=== PATIENT | female | born 1985 | race Caucasian/White ===

== ENCOUNTER 2016-12-16 16:31 | Inpatient (IN) | payer MEDICAID ==
[~2016-12-16] VITALS: Ht 157.5 cm; Wt 55.9 kg
[~2016-12-16 16:31] MED LIST: IBUP800T23 PO; IMIT25TA PO; ZOFR4TAB PO
[2016-12-16 16:37] VITALS: BP 121/66; PULSE 124; RESP 23; TEMP 98.8; O2SAT 96
[2016-12-16] MEDS: SODIUM CHLOR 0.9% 1000 ML INJ 1,000 ML IV SCH (16:59)
[2016-12-16] MEDS ORDERED: ONDANSETRON HCL 4 MG/2 ML VIAL IV PUSH ONE (17:00)
[2016-12-16] MEDS ORDERED: HYDROmorphone HCL PF 1 MG/ML VIAL IV PUSH ONE ×3 (17:00→19:30)
[2016-12-16 17:27] LABS: AUTOMATED NEUTROPHIL # 5.7 TH/MM3 (1.8-7.7); BASOPHIL % 0.4 % (0.0-2.0); EOSINOPHIL % 0.1 % (0.0-4.0); HEMATOCRIT 30.1 % (35.0-46.0); HEMO FLAGS DIFF FINAL; LYMPHOCYTE # 0.9 TH/MM3 (1.0-4.8); MEAN CELL VOLUME 91.9 FL (80.0-100.0); MEAN CORPUSCULAR HEMOGLOBIN 30.4 PG (27.0-34.0); MEAN CORPUSCULAR HGB CONC 33.1 % (32.0-36.0); MONO % 7.3 % (0.0-8.0); NEUT % 79.2 % (16.0-70.0); PLATELET COUNT 172 TH/MM3 (150-450); RED BLOOD COUNT 3.28 MIL/MM3 (4.00-5.30); RED CELL DISTRIBUTION WIDTH 14.8 % (11.6-17.2); WHITE BLOOD COUNT 7.1 TH/MM3 (4.0-11.0)
--- NOTE | 2016-12-16 17:51 | RADRPT ---
EXAM DATE/TIME: 12/16/2016 17:23 [place] COMPARISON: No previous studies available for comparison. INDICATIONS : Fall. MEDICAL HISTORY : None. SURGICAL HISTORY : None. ENCOUNTER: Initial ACUITY: 1 day PAIN SCORE: 10/10 LOCATION: Left hip FINDINGS: There is a subcapital fracture of the left femur. There is mild inferomedial displacement of the femo ral head with respect to the neck and mild medial angulation deformity. Femoral head is intact. No antoine bluxation. CONCLUSION: Mildly displaced and mildly angulated subcapital fracture of the left femoral neck. Darek Coronado MD on December 16, 2016 at 17:49 Board Certified Radiologist. This report was verified electronically.
[2016-12-16 17:57] LABS: POTASSIUM 3.9 MEQ/L (3.5-5.1)
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
[2016-12-16 19:00] VITALS: O2SAT 99
[2016-12-16] MEDS ORDERED: ACETAMINOPHEN 325 MG TAB PO PRN (20:00)
[2016-12-16] MEDS ORDERED: BISACODYL 10 MG SUPP RECTAL PRN (20:00)
[2016-12-16] MEDS ORDERED: HYDROmorphone HCL PF 1 MG/ML VIAL IV PRN (20:00)
[2016-12-16] MEDS ORDERED: SODIUM CHLORIDE 0.9% FLUSH 10 ML FLUSH IV FLUSH PRN (20:00)
[2016-12-16] MEDS ORDERED: ONDANSETRON HCL 4 MG/2 ML VIAL IVP PRN (20:00)
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
[2016-12-16 20:14] LABS: BACTERIA, URINE OCC /hpf; BLOOD, URINE TRACE (NEG); COMMENT (UR) CULTURE INDICATED; CULTURE IF INDICATED CULTURE INDICATED; GLUCOSE,URINE NEG (NEG); KETONE, URINE TRACE mg/dL (NEG); MUCUS URINE FEW /lpf (OCC); SQUAMOUS EPITHELIAL CELL URINE <1 /hpf (0-5); URINE COLOR YELLOW (YELLW/STRAW)
[2016-12-16 20:16] LABS: NITRITE,URINE POS (NEG)
[2016-12-16 20:27] VITALS: BP 135/88
[2016-12-16 20:32] VITALS: BP 113/66; PULSE 82; RESP 18; TEMP 97; O2SAT 97
[2016-12-16] MEDS: HYDROmorphone HCL PF 1 MG/ML VIAL IV PRN (22:42)
[2016-12-17] VITALS (7 sets, daily range): BP systolic 106–126; BP diastolic 64–85; PULSE 58–88; RESP 16–18; TEMP 96.7–98.6; O2SAT 97–100
[2016-12-17] MEDS: SODIUM CHLOR 0.9% 1000 ML INJ 1,000 ML IV SCH ×3 (01:00→05:55)
[2016-12-17] MEDS ORDERED: POVIDONE IODINE 5% (ANTISEPSIS KIT) 4 APPLICATIONS EACH NARE PRN (01:15)
[2016-12-17] MEDS ORDERED: CHLORHEXIDINE GLUCONATE 2 % 1 PACK (2 CLOTHS) TOPICAL PRN (01:15)
[2016-12-17] MEDS ORDERED: SODIUM CHLORID 0.9% 500 ML IV PRN (01:15)
[2016-12-17] MEDS ORDERED: INSULIN HUMAN REGULAR 1,000 UNITS/10 ML VIAL SQ PRN (01:15)
[2016-12-17] MEDS ORDERED: LACTATED RINGER'S 1000 ML IV PRN (01:15)
[2016-12-17] MEDS: HYDROmorphone HCL PF 1 MG/ML VIAL IV PRN ×4 (01:37→20:58)
[2016-12-17] MEDS ORDERED: RESP: ALBUTEROL 2.5 MG/IPRATROPIUM 0.5 MG NEB (PRN) NEB (02:45)
[2016-12-17] MEDS: CIPROFLOXACIN 400 MG PREMIX 200 ML IV SCH ×2 (05:01→18:46)
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
[2016-12-17 07:37] LABS: AUTOMATED NEUTROPHIL # 3.9 TH/MM3 (1.8-7.7); BASOPHIL % 0.5 % (0.0-2.0); EOSINOPHIL # 0.1 TH/MM3 (0-0.4); EOSINOPHIL % 1.1 % (0.0-4.0); HEMATOCRIT 36.6 % (35.0-46.0); HEMO FLAGS DIFF FINAL; LYMPH % 25.8 % (9.0-44.0); LYMPHOCYTE # 1.6 TH/MM3 (1.0-4.8); MEAN CELL VOLUME 90.2 FL (80.0-100.0); MEAN CORPUSCULAR HEMOGLOBIN 29.8 PG (27.0-34.0); MONO % 9.4 % (0.0-8.0); NEUT % 63.2 % (16.0-70.0); PLATELET COUNT 181 TH/MM3 (150-450); RED BLOOD COUNT 4.06 MIL/MM3 (4.00-5.30); WHITE BLOOD COUNT 6.2 TH/MM3 (4.0-11.0)
[2016-12-17 07:47] LABS: APTT (PATIENT) 31.1 SEC (24.3-30.1); PROTHROMBIN TIME - PATIENT 10.7 SEC (9.8-11.6)
[2016-12-17 08:06] LABS: ALKALINE PHOSPHATASE 75 U/L (45-117); ALT (GPT) 21 U/L (10-53); ANION GAP 8 MEQ/L (5-15); AST (GOT) 26 U/L (15-37); BICARBONATE 26.5 MEQ/L (21.0-32.0); BLOOD UREA NITROGEN 9 MG/DL (7-18); CHLORIDE 104 MEQ/L (98-107); GLOMERULAR FILTRATION RATE 115 ML/MIN (>89); POTASSIUM 3.4 MEQ/L (3.5-5.1); SODIUM (NA) 138 MEQ/L (136-145); TOTAL BILIRUBIN ADULT 0.4 MG/DL (0.2-1.0)
[2016-12-17] MEDS ORDERED: VANCOMYCIN HCL 1000 MG VIAL ONE (08:08)
[2016-12-17] MEDS ORDERED: GENTAMICIN SULFATE 80 MG/2 ML VIAL ONE (08:29)
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
[2016-12-17] MEDS ORDERED: BUPIVACAINE/EPINEPHRINE 0.25% 50 ML VIAL ONE (08:47)
[2016-12-17] MEDS ORDERED: SODIUM CHLORIDE 0.9% FLUSH 5 ML FLUSH IVF PRN (09:00)
[2016-12-17] MEDS ORDERED: Post-op Orders (for Pharmacy) MISC XX ONE (09:00)
[2016-12-17] MEDS ORDERED: MORPHINE SULFATE 4 MG/ML INJ IV PUSH PRN (09:00)
[2016-12-17] MEDS ORDERED: ERGOCALCIFEROL (VIT D2) 50,000 UNIT CAP PO ONE (09:00)
[2016-12-17] MEDS ORDERED: SODIUM CHLORIDE 0.9% FLUSH 5 ML FLUSH IVF SCH (09:00)
[2016-12-17] MEDS: SODIUM CHLORIDE 0.9% FLUSH 10 ML FLUSH IV FLUSH SCH ×2 (09:00→20:58)
--- NOTE | 2016-12-17 09:06 | PD.OP ---
cc: Power Aguilera MD Operative Report Date of Surgery: December 17, 2016 Preoperative Diagnosis: Displaced left femoral neck fracture Postoperative Diagnosis: Procedure: Open reduction internal fixation left femoral neck Anesthesia: Gen. Surgeon: Power Aguilera Talent Manager(s): LAWRENCE Alfaro PA-C The surgical procedure was assisted by my physician clinic office assistant. My P.A. presence was necessary throughout this case for the manipulation and positioning of the surgical extremity. My P.A. was assisting me throughout the duration of this procedure. The skill set of a physician clinic office assistant was medically necessary to complete this procedure. During the surgical case the surgical lead was working at the back table and the physician clinic office assistant was directly assisting me. Operation and Findings: Plan of activity: TTWB Patient was seen and evaluated preoperatively. The patient has significant hip pain from displaced left femoral neck fracture. The risk and benefits of surgery were discussed in depth with the patient to include bleeding infection nonunion malunion, avascular necrosis and need for hip replacement painful hardware as well as medical competitions including but not stroke heart attack and . Informed consent was obtained. Operative site was marked. Patient was brought to the operating room and placed on fracture table. IV sedation was administered by anesthesiologist. Timeout procedure was performed. Hip and leg were prepped with alcohol followed by DuraPrep and draped in the usual sterile fashion. IV antibiotics were given prior to incision. Procedure began with evaluation of fracture under fluoroscopy. The fracture had significant displacement. The left Leg was gently manipulated to improve alignment. Gentle traction was applied and the leg was internally rotated. Excellent reduction was achieved. Fluoroscopy was used to confirm reduction. A three cm incision was along the lateral aspect of the proximal femur . Subcutaneous tissue was dissected bluntly. Three guidepins were placed through the lateral cortex of the proximal femur. Guide pins were placed in an inverted triangle position. Guide pins were advanced across the fracture site into the femoral head. Fluoroscopy confirmed appropriate guidepin placement. The screw lengths were measured. A cannulated drill was placed over each of the guide pins. Appropriate length Synthes 7.3 cannulated screws were placed over the guidepins. Good compression was applied across the fracture. Final fluoroscopy revealed well aligned fracture with well-placed hardware. Incision was closed with 3-0 Vicryl and mattie. Sterile dressings were applied. Patient was awakened and transferred to recovery room. Power Aguilera MD December 17, 2016 09:06
[2016-12-17] MEDS ORDERED: DO NOT ADM ANY ANTICOAGULANT DRUGS PRN (09:09)
[2016-12-17] MEDS ORDERED: ACETAMINOPHEN 1000 MG/100 ML VIAL IV ONE (09:18)
[2016-12-17] MEDS ORDERED: MIDAZOLAM HCL 2 MG/2 ML VIAL ONE (09:31)
[2016-12-17] MEDS ORDERED: fentaNYL CITRATE 250 MCG/5 ML AMP ONE (09:31)
[2016-12-17] MEDS ORDERED: *HYDROmorphone PF 1 MG VIAL PERIprocedural Use ONLY ONE (09:34)
[2016-12-17] MEDS ORDERED: NORMOSOL R INJ 1,000 ML IV ONE (10:28)
[2016-12-17] MEDS ORDERED: ONDANSETRON HCL 4 MG/2 ML VIAL IV ONE (10:28)
[2016-12-17] MEDS ORDERED: NEOSTIGMINE 3 MG/3 ML SYR IV ONE (10:28)
[2016-12-17] MEDS ORDERED: PROPOFOL 200 MG/20 ML AMP IV ONE (10:28)
[2016-12-17] MEDS: ACETAMINOPHEN/HYDROcodone 325 MG/10 MG TAB PO PRN ×3 (12:09→22:57)
[2016-12-17] MEDS: CHOLECALCIFEROL (VIT D3) 5000 UNIT CAP PO SCH (12:10)
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
[2016-12-17] MEDS ORDERED: POTASSIUM CHLORIDE 20 MEQ CONTROLLED RELEASE TAB PO ONE (14:15)
--- NOTE | 2016-12-17 15:31 | RADRPT ---
EXAM DATE/TIME: 12/17/2016 08:51 [facility] COMPARISON: HIP LEFT (AP&LAT 2/3VWS) W AP PELVIS, December 16, 2016, 17:23. INDICATIONS : ORIF left hip pinning. MEDICAL HISTORY : None. SURGICAL HISTORY : None. ENCOUNTER: Subsequent ACUITY: 2 days PAIN SCORE: Non-responsive. LOCATION: Left hip. FINDINGS: Multiple views of the left hip were obtained and demonstrate placement of 3 left-sided screws transfi keshawn the subcapital fracture. The fracture fragments are in near-anatomic alignment. There is overlyi ng soft tissue artifact. CONCLUSION: Status post open rigid internal fixation. Erasmo Delatorre MD on December 17, 2016 at 15:28 Board Certified Radiologist. This report was verified electronically.
[2016-12-17] MEDS ORDERED: ALPR.5 PO (17:27)
[2016-12-17] MEDS ORDERED: ENOXAPARIN SODIUM 30 MG/0.3 ML SYRINGE SQ SCH (21:00)
[2016-12-18] MEDS: HYDROmorphone HCL PF 1 MG/ML VIAL IV PRN ×3 (00:17→06:24)
[2016-12-18 04:05] VITALS: BP 113/66; PULSE 68; RESP 16; TEMP 97; O2SAT 98
[2016-12-18] MEDS: CIPROFLOXACIN 400 MG PREMIX 200 ML IV SCH (06:00)
--- NOTE | 2016-12-18 06:43 | PD.ORT.PN ---
Subjective Subjective Remarks POD 1 s/p percutaneous pinning left femoral neck doing well. out of bed with therapy yesterday reports pain Objective Vitals Vital Signs Date Time Temp Pulse Resp B/P Pulse Ox O2 Delivery O2 Flow Rate FiO2 12/18/16 04:05 97.0 68 16 113/66 98 12/17/16 23:45 97.0 70 18 121/79 100 12/17/16 19:50 98.1 71 17 119/73 99 12/17/16 15:56 97.5 65 17 126/85 100 12/17/16 11:40 96.7 58 17 117/69 98 12/17/16 10:05 97.3 95 15 110/68 98 Nasal Cannula 2 12/17/16 10:00 78 15 109/66 98 Nasal Cannula 2 12/17/16 09:45 116 15 89/60 98 Nasal Cannula 2 12/17/16 09:30 116 15 71/46 98 Nasal Cannula 2 12/17/16 09:14 97.3 109 15 92/50 98 Nasal Cannula 2 12/17/16 07:44 98.3 77 17 125/64 97 I/O 12/17/16 12/17/16 12/17/16 12/18/16 12/18/16 12/18/16 07:00 15:00 23:00 07:00 15:00 23:00 Intake Total 0 ml 1700 ml 480 ml 480 ml Output Total 350 ml 650 ml 1200 ml 875 ml Balance -350 ml 1050 ml -720 ml -395 ml Intake Oral 0 ml 400 ml 480 ml 480 ml IV Total 100 ml Other 1200 ml Output Urine Total 350 ml 600 ml 1200 ml 875 ml Estimated Blood Loss 50 ml # Bowel Movements 0 0 0 0 Result Diagram: 12/17/16 0643 12/17/16 0643 Other Results Laboratory Tests Test 12/17/16 06:43 Prothrombin Time 10.7 SEC (9.8-11.6) Prothromb Time International 1.0 RATIO Ratio Imaging Last 24 hours Impressions Hip and Pelvis X-Ray 12/16/16 1648 Signed Impressions: Service Date/Time: Friday, December 16, 2016 17:23 - CONCLUSION: Mildly displaced and mildly angulated subcapital fracture of the left femoral neck. Darek Coronado MD Objective Remarks LLE: dressinsg clean and dry. intact. NVI Assessment & Plan Assessment and Plan 1) Left Femoral Neck Fx s/p Perc Pinning - POD 1 -TTWB -daily dressing changes POD 2 -CM for HHC and DC planning -ortho cleared for DC home when arrangements made -f/u with [facility] or [facility] in 2 weeks -scripts on chart Gabo Oviedo December 18, 2016 06:43
[2016-12-18] MEDS ORDERED: WALKER/ADULT/FO1 MIS (06:44)
--- NOTE | 2016-12-18 06:45 | HHI.FF ---
Face to Face Verification Diagnosis: (1) Fracture of left femur Physical Therapy Gait training Hip: Hip fracture, Protocol: Left Left LE Weight Bearing: Toe Touch WB Nursing Dressing Changes: Daily dressing change, 4x4s, Paper tape, Xeroform I have seen patient Monique Mccauley on 12/18/16. My clinical findings support the need for the requested home health care services because: Ltd mobility - disease progression I certify that my clinical findings support that this patient is homebound because: Post-op weakness Gabo Oviedo December 18, 2016 06:45
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
[2016-12-18] MEDS ORDERED: XARE10TA PO (07:14)
[2016-12-18] MEDS ORDERED: CIPR250T52 PO (07:14)
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
[2016-12-18] MEDS ORDERED: HYDR-3288 PO (07:18)
[2016-12-18 07:39] LABS: HEMATOCRIT 35.3 % (35.0-46.0); REVIEW FLAG FINAL
[2016-12-18 08:00] VITALS: BP 114/67; PULSE 69; RESP 17; TEMP 97; O2SAT 96
[2016-12-18] MEDS: CHOLECALCIFEROL (VIT D3) 5000 UNIT CAP PO SCH (08:27)
[2016-12-18] MEDS: ACETAMINOPHEN/HYDROcodone 325 MG/10 MG TAB PO PRN ×2 (08:28→12:50)
[2016-12-18] MEDS: SODIUM CHLORIDE 0.9% FLUSH 10 ML FLUSH IV FLUSH SCH (08:29)
[2016-12-18 12:00] VITALS: BP 133/78; PULSE 73; RESP 18; TEMP 96.9; O2SAT 97
[2016-12-18 16:00] VITALS: BP 116/70; PULSE 70; RESP 17; TEMP 97; O2SAT 97
== END 2016-12-18 17:46 | disposition home health service (06) | DRG 481 ==
LOC: NEPE 16:31 → EEVIPCON 19:26 → NEDA 19:26 → N06B 20:37
PROVIDERS: ADMIT Internal Medicine; ATTEND Internal Medicine
PROC: 0QS704Z Reposition Left Upper Femur with Internal Fixation Device, Open Approach (ICD-10-PCS; principal; 2016-12-17 08:11)
DX: S72.012A Unspecified intracapsular fracture of left femur, initial encounter for closed fracture (principal); N39.0 Urinary tract infection, site not specified; J96.10 Chronic respiratory failure, unspecified whether with hypoxia or hypercapnia; J44.9 Chronic obstructive pulmonary disease, unspecified; F20.9 Schizophrenia, unspecified; F31.9 Bipolar disorder, unspecified; Y04.2XXA Assault by strike against or bumped into by another person, initial encounter; Y92.89 Other specified places as the place of occurrence of the external cause; F41.9 Anxiety disorder, unspecified; E87.6 Hypokalemia; F17.210 Nicotine dependence, cigarettes, uncomplicated; Z85.42 Personal history of malignant neoplasm of other parts of uterus
CPT/HCPCS: 73502; 76000; 80048; 80053; 81001; 82306; 85014; 85018; 85025; 85610; 85730; 86850; 86900; 86901; 87077; 87086; 87186; 96361; 96374; 96375; 96376; C1713; C1769; J0131; J0744; J1170; J1580; J1650; J2250; J2405; J2710; J3010; J3370; J7030

== ENCOUNTER 2017-06-16 09:56 | Emergency (ER) | payer MEDICAID ==
[~2017-06-16] VITALS: Ht 157.5 cm; Wt 47.5 kg
[~2017-06-16 09:56] MED LIST changes: +ALPR.5 PO; +CIPR250T52 PO; +HYDR-3288 PO; -IBUP800T23 PO; +WALKER/ADULT/FO1 MIS; +XARE10TA PO
[2017-06-16 10:03] VITALS: BP 148/87; PULSE 80; RESP 20; TEMP 97.9; O2SAT 99
--- NOTE | 2017-06-16 11:10 | PD ---
HPI Chief Complaint: Headache Time Seen by Provider: 11:02 Travel History International Travel<30 days: No Contact w/Intl Traveler<30days: No Traveled to known affect area: No History of Present Illness HPI This is a 31-year-old female who presents to the emergency department with a headache that started last evening, constant, severe affecting her right forehead radiating into her right neck associated with white spots in her vision. She's vomited several times. She has a long history of migraines. She takes Imitrex at home for her headaches but that's not helping. This feels the same as her prior headaches. She denies any difficulty walking or talking. PFSH Past Medical History Arthritis: No Asthma: No Autoimmune Disease: No Blood Disorders: No Bipolar Disorder: Yes Anxiety: Yes Depression: Yes Heart Rhythm Problems: No Cancer: Yes (OVARIAN) Cardiovascular Problems: No High Cholesterol: No Chemotherapy: No Chest Pain: Yes Congestive Heart Failure: No COPD: Yes Cerebrovascular Accident: No Diminished Hearing: No Endocrine: No Gastrointestinal Disorders: Yes GERD: No Genitourinary: No Hepatitis: No Hiatal Hernia: Yes Hypertension: No Immune Disorder: No Implanted Vascular Access Dvce: No Kidney Stones: No Musculoskeletal: Yes Neurologic: Yes Psychiatric: Yes ( states bipolar and schizophrenic.) Reproductive: Yes (FIBROIDS) Respiratory: Yes (COPD) Migraines: Yes (HER ENTIRE LIFE) Radiation Therapy: Yes (For uterine Ca, 2001) Renal Failure: No Schizophrenia: Yes Seizures: Yes (ONCE, 2010) Ulcer: No Menopausal: Yes : 4 Para: 3 Miscarriage: 1 Dilation and Curettage (D&C): Yes (x2) Past Surgical History Abdominal Surgery: No Appendectomy: No Cardiac Surgery: No Cholecystectomy: Yes Ear Surgery: Yes (tubes) Endocrine Surgery: No Eye Surgery: No Genitourinary Surgery: No Gynecologic Surgery: Yes ( HYSTERECTOMY 2010) Hysterectomy: Yes Oral Surgery: No Thoracic Surgery: No Other Surgery: Yes (mouth) Social History Alcohol Use: No Tobacco Use: Yes (1 PPD) Substance Use: No (HX HEROIN USE) Allergies-Medications (Allergen,Severity, Reaction): Coded Allergies: amoxicillin (Unverified Allergy, Severe, RASH, 06/16/17) codeine (Unverified Allergy, Severe, UNKNOWN, 06/16/17) morphine (Unverified Allergy, Severe, HIVES ITCHING, 06/16/17) penicillin G (Unverified Allergy, Severe, Swelling, 06/16/17) Reported Meds & Prescriptions Reported Meds & Active Scripts Active Imitrex (Sumatriptan Succinate) 25 Mg Tab 25 Mg PO ONCE PRN If a satisfactory response has not been obtained at 2 hours, a second dose may be administered Review of Systems Except as stated in HPI: all other systems reviewed are Neg Physical Exam Narrative GENERAL:Well appearing, no acute distress SKIN: Focused skin assessment warm and dry. HEAD: Atraumatic. Normocephalic. EYES: Pupils equal and round. No injection or drainage. ENT: Moist mucous membranes NECK: Trachea midline. CARDIOVASCULAR: Regular rate and rhythm. No murmur appreciated. RESPIRATORY: Clear to auscultation. Breath sounds equal bilaterally. GASTROINTESTINAL: Abdomen soft, non-tender, nondistended. MUSCULOSKELETAL: No obvious deformities. NEUROLOGICAL: Awake and alert. No obvious cranial nerve deficits. No dysarthria or aphasia. No upper or lower extremity drift. No upper extremity ataxia. Visual ramirez intact. PSYCHIATRIC: Appropriate mood and affect; insight and judgment normal. Data Data Last Documented VS Vital Signs Date Time Temp Pulse Resp B/P (MAP) Pulse Ox O2 Delivery O2 Flow Rate FiO2 06/16/17 10:03 97.9 80 20 148/87 (107) 99 Room Air MDM Medical Decision Making Medical Screen Exam Complete: Yes Emergency Medical Condition: Yes Differential Diagnosis Migraine headache, tension headache, cluster headache, subarachnoid hemorrhage, meningitis Narrative Course This is a 31-year-old female who presents to the emergency department with a headache that's typical of her migraines. She has a normal neurologic exam. I don't think any neuro imaging is warranted as this headache is typical of her prior headaches. Patient will be given IV Compazine, Toradol and IV fluids. If she improves she can be discharged with a naproxen prescription. Brook Sandoval MD Jun 16, 2017 11:10
[2017-06-16] MEDS ORDERED: SODIUM CHLOR 0.9% 1000 ML INJ 1,000 ML IV ONE ×2 (11:22→13:00)
--- NOTE | 2017-06-16 11:26 | PD ---
Physical Exam Date Seen by Provider: Jun 16, 2017 Time Seen by Provider: 11:24 Narrative Patient was evaluated by Dr. Sandoval. This is a 31-year-old female presents to the emergency department for evaluation of a headache that started last night. She states she has vomited 4 times. She has a long history of migraines. Patient reports photophobia and phonophobia. Data Data Last Documented VS Vital Signs Date Time Temp Pulse Resp B/P (MAP) Pulse Ox O2 Delivery O2 Flow Rate FiO2 06/16/17 11:46 16 99 Room Air 06/16/17 10:03 97.9 80 Orders Orders Ecg Monitoring (06/16/17 11:22) Iv Access Insert/Monitor (06/16/17 11:22) Oximetry (06/16/17 11:22) Sodium Chloride 0.9% Flush (Ns Flush) (06/16/17 11:30) Ketorolac Inj (Toradol Inj) (06/16/17 11:30) Prochlorperazine Inj (Compazine Inj) (06/16/17 11:30) Diphenhydramine Inj (Benadryl Inj) (06/16/17 11:30) Sodium Chlor 0.9% 1000 Ml Inj (Ns 1000 M (06/16/17 11:22) Magnesium Sulfate 1 Gm Premix (Magnesium (06/16/17 13:00) Dexamethasone Inj (Decadron Inj) (06/16/17 13:00) Sodium Chlor 0.9% 1000 Ml Inj (Ns 1000 M (06/16/17 13:00) Ct Brain W/O Iv Contrast(Rout) (06/16/17 ) [facility] Medical Record Reviewed: Yes Supervised Visit with ANGIE: No Interpretation(s) CT brain - normal examination Differential Diagnosis Migraine headache versus tension type headache versus subarachnoid hemorrhage Narrative Course 31-year-old female presents to the emergency department for evaluation of a headache. Dr. Foote examined patient patient has a normal neurologic exam. IV access established. Patient is given Benadryl 25 mg IV, Compazine 10 mg IV, Toradol 30 mg IV. Upon reassessment, patient states she's had no improvement with her headache. I spoke to Dr. Sandoval. Patient is given magnesium 2 g IV, Decadron 8 mg IV, a second liter of IV fluids. CT of the brain is ordered and is normal. Upon reassessment, the patient states she has had some improvement in her headache. She is to follow-up with her primary care physician. She will be discharged with a prescription for naproxen. The patient was discharged in stable condition with instructions, including return instructions and follow up instructions. Diagnosis Primary Impression: Migraine headache Qualified Codes: G43.909 - Migraine, unspecified, not intractable, without status migrainosus Referrals: Primary Care Physician call for appointment Patient Instructions: General Instructions, Migraine Headache (ED) Additional Instruction: Take naproxen as directed as needed for pain. Follow-up with your primary care physician. Return to the emergency department for any acute worsening of symptoms. Med/Other Pt SpecificInfo: Prescription(s) given Scripts Naproxen (Naproxen) 500 Mg Tab 500 MG PO BID Y for PAIN SCALE 1 TO 10, #20 TAB 0 Refills Prov: Ronda Oviedo 06/16/17 Disposition: 01 DISCHARGE HOME Condition: Stable Ronda Oviedo Jun 16, 2017 11:25
[2017-06-16] MEDS ORDERED: diphenhydrAMINE HCL 50 MG/ML VIAL IVP ONE (11:30)
[2017-06-16] MEDS ORDERED: SODIUM CHLORIDE 0.9% FLUSH 10 ML FLUSH IVF PRN (11:30)
[2017-06-16] MEDS ORDERED: KETOROLAC TROMETHAMINE 30 MG/ML (IVP) VIAL IVP ONE (11:30)
[2017-06-16] MEDS ORDERED: PROCHLORPERAZINE INJ 10 MG/2 ML VIAL IVP ONE (11:30)
[2017-06-16 11:46] VITALS: RESP 16; O2SAT 99
[2017-06-16] MEDS: MAGNESIUM SULFATE 1 GM PREMIX 100 ML IV SCH ×2 (12:59→13:48)
[2017-06-16] MEDS ORDERED: DEXAMETHASONE SOD PHOS 4 MG/ML VIAL IV PUSH ONE (13:00)
--- NOTE | 2017-06-16 15:18 | RADRPT ---
EXAM DATE/TIME: 06/16/2017 14:43 [facility] COMPARISON: CT BRAIN W/O CONTRAST, June 11, 2016, 15:33. INDICATIONS : Cephalgia. RADIATION DOSE: 56.35 CTDIvol (mGy) MEDICAL HISTORY : Seizures. SURGICAL HISTORY : Hysterectomy. ENCOUNTER: Initial ACUITY: 1 day PAIN SCALE: 4/10 LOCATION: cranial TECHNIQUE: Multiple contiguous axial images were obtained of the head. Using automated exposure control and adj ustment of the mA and/or kV according to patient size, radiation dose was kept as low as reasonably a chievable to obtain optimal diagnostic quality images. DICOM format image data is available electro nically for review and comparison. FINDINGS: CEREBRUM: The ventricles are normal for age. No evidence of midline shift, mass lesion, hemorrhage or acute in farction. No extra-axial fluid collections are seen. POSTERIOR FOSSA: The cerebellum and brainstem are intact. The 4th ventricle is midline. The cerebellopontine angle i s unremarkable. EXTRACRANIAL: The visualized portion of the orbits is intact. SKULL: The calvaria is intact. No evidence of skull fracture. CONCLUSION: Normal examination. Aristides Briggs MD on June 16, 2017 at 15:16 Board Certified Radiologist. This report was verified electronically.
[2017-06-16] MEDS ORDERED: NAPR500T2 PO (15:26)
== END 2017-06-16 15:58 | disposition home or self-care (01) ==
LOC: NEPD 09:56
DX: G43.909 Migraine, unspecified, not intractable, without status migrainosus (principal); R11.10 Vomiting, unspecified; F31.9 Bipolar disorder, unspecified; F41.9 Anxiety disorder, unspecified; J44.9 Chronic obstructive pulmonary disease, unspecified; F20.9 Schizophrenia, unspecified; R56.9 Unspecified convulsions; F17.200 Nicotine dependence, unspecified, uncomplicated; Z79.899 Other long term (current) drug therapy
CPT/HCPCS: 70450; 96361; 96365; 96375; 99285; J0780; J1100; J1200; J1885; J3475; J7030

== ENCOUNTER → 2017-09-06 | Day surgery (SDC) | payer MEDICAID ==
[~2017-09-06] VITALS: Ht 157.5 cm; Wt 48.7 kg
[~2017-09-06] MED LIST changes: +*MEPERIDINE 25 MG INJ VIAL PERIprocedural Use ONLY ONE; +ACETAMINOPHEN 1000 MG/100 ML 100 ML IV ONE; +ACETAMINOPHEN/HYDROcodone 325 MG/5 MG TAB PO PRN; -ALPR.5 PO; +BUPIVACAINE/EPINEPHRINE 0.25% 50 ML VIAL ONE; +CHLORHEXIDINE GLUCONATE 2 % 1 PACK (2 CLOTHS) TOPICAL PRN; -CIPR250T52 PO; +CLINDAMYCIN PHOS 600 MG/4 ML VIAL ONE; +DEXAMETHASONE SOD PHOS 4 MG/ML VIAL IV ONE; +DO NOT ADM ANY ANTICOAGULANT DRUGS PRN; +GENTAMICIN SULFATE 80 MG/2 ML VIAL ONE; -HYDR-3288 PO; +HYDROmorphone HCL PF 2 MG/ML VIAL ONE; -IMIT25TA PO; +LACTATED RINGER'S 1000 ML INJ 1,000 ML IV SCH; +LACTATED RINGER'S 1000 ML IV PRN; +LIDOCAINE HCL 1% PF 5 ML SYRINGE OTHER ONE; +METOPROLOL TARTRATE 25 MG TAB PO PRN; +MIDAZOLAM HCL 2 MG/2 ML VIAL ONE; +NORC5TAB PO; +ONDANSETRON HCL 4 MG/2 ML VIAL IV ONE; +ONDANSETRON HCL 4 MG/2 ML VIAL IV PUSH PRN; +POVIDONE IODINE 5% (ANTISEPSIS KIT) 4 APPLICATIONS EACH NARE PRN; +PROPOFOL 200 MG/20 ML AMP IV ONE; +SODIUM CHLORIDE 0.9% FLUSH 10 ML FLUSH IV FLUSH PRN; +SODIUM CHLORIDE 0.9% FLUSH 10 ML FLUSH IV FLUSH SCH; +VANCOMYCIN HCL 1000 MG VIAL ONE; -WALKER/ADULT/FO1 MIS; -XARE10TA PO; -ZOFR4TAB PO
--- NOTE | 2017-09-06 09:20 | PD.OP ---
cc: Power Aguilera MD Operative Report Date of Surgery: Sep 06, 2017 Preoperative Diagnosis: Painful hardware left hip Postoperative Diagnosis: Procedure: Removal deep hardware left hip Surgeon: Power Aguilera Customer Management Specialist(s): LAWRENCE Alfaro PA-C Operation and Findings: Plan of activity: Weight-bear as tolerated Patient was seen and evaluated preoperatively. 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 She is also having pain around her hardware. The risk and benefits of surgery were discussed in depth with the patient to include bleeding infection nonunion malunion, and need for hip replacement painful hardware as well as medical competitions including but not stroke heart attack and . She understands that she will likely need a total hip arthroplasty in the near future. Informed consent was obtained. Operative site was marked. Patient was brought to the operating room and placed on fracture table. IV sedation was administered by anesthesiologist. Timeout procedure was performed. Hip and leg were prepped with alcohol followed by Hibiclens and draped in the usual sterile fashion. IV antibiotics were given prior to incision. Procedure began with evaluation of hip under fluoroscopy. Patient has avascular necrosis. A three cm incision was made along the lateral aspect of the proximal femur through prior incision . Subcutaneous tissue was dissected bluntly. Three guidepins were placed through the cannulated screws in the proximal femur. Appropriate screwdrivers were now used to remove the screws. Fluoroscopy confirmed removal of appropriate hardware. Incision was closed with 3-0 Vicryl and mattie. Sterile dressings were applied. Patient was awakened and transferred to recovery room. Power Aguilera MD Sep 06, 2017 09:20
[2017-09-06 11:09] VITALS: BP 101/65; PULSE 75; RESP 16; TEMP 97.5; O2SAT 100
--- NOTE | 2017-09-06 15:02 | RADRPT ---
EXAM DATE/TIME: 09/06/2017 08:57 [facility] COMPARISON: CT ABDOMEN & PELVIS W/O CONTRAST, July 05, 2014, 10:51. HIP LEFT (AP&LAT 2/3VWS) W AP PELVIS, 2016, 17:23. HIP LEFT (AP&LAT 2/3VWS) WO AP PELVIS, December 17, 2016, 8:51. INDICATIONS : Hardware removal- ORIF. Done in OR. MEDICAL HISTORY : None. SURGICAL HISTORY : None. ENCOUNTER: Initial ACUITY: 1 day PAIN SCORE: Non-responsive. LOCATION: Left Hip FINDINGS: There is bony deformity involving the left femoral head raising the possibility of osteonecrosis. Pre viously noted hardware has been removed. No acute fracture is noted. CONCLUSION: Bony deformity involving the left femoral head raising the possibility of osteonecros is. Clinical correlation is recommended. Jonathan Saleh MD on September 06, 2017 at 14:57 Board Certified Radiologist. This report was verified electronically.
== END | disposition home or self-care (01) ==
LOC: HSDC 05:49
PROVIDERS: ATTEND Orthopaedic Surgery Orthopaedic Trauma
DX: T84.84XA Pain due to internal orthopedic prosthetic devices, implants and grafts, initial encounter (principal)
CPT/HCPCS: 01210; 20680; 73502; 76000; 87015; 87070; 87102; 87116; 87205; 87206; J0131; J1100; J1170; J1580; J2175; J2250; J2405; J3370; J7120

== ENCOUNTER 2017-09-19 12:43 | Emergency (ER) | payer MEDICAID ==
[~2017-09-19] VITALS: Ht 157.5 cm; Wt 60.0 kg
[~2017-09-19 12:43] MED LIST changes: -*MEPERIDINE 25 MG INJ VIAL PERIprocedural Use ONLY ONE; -ACETAMINOPHEN 1000 MG/100 ML 100 ML IV ONE; -ACETAMINOPHEN/HYDROcodone 325 MG/5 MG TAB PO PRN; -BUPIVACAINE/EPINEPHRINE 0.25% 50 ML VIAL ONE; -CHLORHEXIDINE GLUCONATE 2 % 1 PACK (2 CLOTHS) TOPICAL PRN; -CLINDAMYCIN PHOS 600 MG/4 ML VIAL ONE; -DEXAMETHASONE SOD PHOS 4 MG/ML VIAL IV ONE; -DO NOT ADM ANY ANTICOAGULANT DRUGS PRN; -GENTAMICIN SULFATE 80 MG/2 ML VIAL ONE; -HYDROmorphone HCL PF 2 MG/ML VIAL ONE; -LACTATED RINGER'S 1000 ML INJ 1,000 ML IV SCH; -LACTATED RINGER'S 1000 ML IV PRN; -LIDOCAINE HCL 1% PF 5 ML SYRINGE OTHER ONE; -METOPROLOL TARTRATE 25 MG TAB PO PRN; -MIDAZOLAM HCL 2 MG/2 ML VIAL ONE; -ONDANSETRON HCL 4 MG/2 ML VIAL IV ONE; -ONDANSETRON HCL 4 MG/2 ML VIAL IV PUSH PRN; -POVIDONE IODINE 5% (ANTISEPSIS KIT) 4 APPLICATIONS EACH NARE PRN; -PROPOFOL 200 MG/20 ML AMP IV ONE; -SODIUM CHLORIDE 0.9% FLUSH 10 ML FLUSH IV FLUSH PRN; -SODIUM CHLORIDE 0.9% FLUSH 10 ML FLUSH IV FLUSH SCH; -VANCOMYCIN HCL 1000 MG VIAL ONE
[2017-09-19 12:45] VITALS: BP 125/75; PULSE 104; RESP 20; TEMP 98.8; O2SAT 100
[2017-09-19] MEDS ORDERED: SODIUM CHLOR 0.9% 1000 ML INJ 1,000 ML IV SCH (13:48)
[2017-09-19] MEDS ORDERED: SODIUM CHLORIDE 0.9% FLUSH 10 ML FLUSH IV FLUSH PRN (14:00)
[2017-09-19] MEDS ORDERED: HYDROmorphone HCL PF 1 MG/ML VIAL IV PUSH ONE (14:00)
[2017-09-19] MEDS ORDERED: ONDANSETRON HCL 4 MG/2 ML VIAL IVP ONE (14:00)
--- NOTE | 2017-09-19 14:01 | PD ---
HPI Chief Complaint: Skin Problem Time Seen by Provider: 13:30 Travel History International Travel<30 days: No Contact w/Intl Traveler<30days: No Traveled to known affect area: No History of Present Illness HPI 31-year-old female presents to the emergency department with complaint of redness and increased pain to her left hip surgical site 2 days. She had surgery 2 weeks ago and the surgery was done by Dr. Leigh. She has not called him to let him know what is going on. She does have follow-up appointment with Dr. Leigh on September 23 to get the mattie removed. Said she vomited last night. Denies fevers. Denies drainage from the surgical site, but says that it has an odor. Rates pain 10/10. Describes it as burning. Has been taking K[place]lotus 7.5 mg with no relief of pain. No known relieving factors. Aggravated with movement and pain is constant. Allergies to codeine, amoxicillin, morphine , penicillin. No primary care provider. Denies significant past medical history. Has no other medical complaints. No other modifying factors or associated signs and symptoms. PFSH Past Medical History Arthritis: No Asthma: No Autoimmune Disease: No Blood Disorders: No Bipolar Disorder: Yes Anxiety: Yes Depression: Yes Heart Rhythm Problems: No Cancer: Yes (OVARIAN) Cardiovascular Problems: No High Cholesterol: No Chemotherapy: No Chest Pain: Yes Congestive Heart Failure: No COPD: Yes Cerebrovascular Accident: No Diabetes: No Diminished Hearing: No Endocrine: No Gastrointestinal Disorders: Yes GERD: No Genitourinary: No Hepatitis: No Hiatal Hernia: Yes Hypertension: No Immune Disorder: No Implanted Vascular Access Dvce: No Kidney Stones: No Musculoskeletal: Yes (PREVIOUS FALL , L KNEE PAIN) Neurologic: Yes Psychiatric: Yes ( states bipolar and schizophrenic.) Reproductive: Yes (FIBROIDS) Respiratory: Yes (COPD) Migraines: Yes (HER ENTIRE LIFE) Radiation Therapy: Yes (For uterine Ca, 2001) Renal Failure: No Schizophrenia: Yes Seizures: Yes (ONCE, 2010) Thyroid Disease: No Ulcer: No ?: Not Menopausal: Yes : 4 Para: 3 Miscarriage: 1 Dilation and Curettage (D&C): Yes (x2) Past Surgical History Abdominal Surgery: No AICD: No Appendectomy: No Cardiac Surgery: No Cholecystectomy: Yes Ear Surgery: Yes (tubes) Endocrine Surgery: No Eye Surgery: No Genitourinary Surgery: No Gynecologic Surgery: Yes ( HYSTERECTOMY 2010) Hysterectomy: Yes Joint Replacement: No Oral Surgery: No Pacemaker: No Thoracic Surgery: No Other Surgery: Yes (mouth) Social History Alcohol Use: No Tobacco Use: Yes (1 PPD) Substance Use: No (HX HEROIN USE) Allergies-Medications (Allergen,Severity, Reaction): Coded Allergies: amoxicillin (Unverified Allergy, Severe, RASH, 09/06/17) codeine (Unverified Allergy, Severe, UNKNOWN, 09/06/17) morphine (Unverified Allergy, Severe, HIVES ITCHING, 09/06/17) penicillin G (Unverified Allergy, Severe, Swelling, 09/06/17) Reported Meds & Prescriptions Reported Meds & Active Scripts Active Ibuprofen 800 Mg Tab 800 Mg PO Q6HR PRN Bactrim DS (Sulfamethoxazole-Trimethoprim) 800-160 Mg Tab 1 Tab PO BID 10 Days Doxycycline Hyclate 100 Mg Cap 100 Mg PO BID 10 Days Review of Systems Except as stated in HPI: all other systems reviewed are Neg Physical Exam Narrative GENERAL: Well-nourished, well-developed female patient, in no acute distress SKIN: Warm and dry. Left lateral mid thigh with surgical wound that is well approximated with mattie intact; surrounded with erythema and a pinpoint area of purulent drainage is noted; no left groin lymphadenopathy; no lymphangitis noted. Left lower extremity supple nontender with 2+ pedal pulses and sensory intact. HEAD: Atraumatic. Normocephalic. EYES: Pupils equal and round. No scleral icterus. No injection or drainage. ENT: Mucosa pink and moist. Airway patent. NECK: Trachea midline. CARDIOVASCULAR: Regular rate. RESPIRATORY: No accessory muscle use. GASTROINTESTINAL: Flat. MUSCULOSKELETAL: No obvious deformities. No clubbing. No cyanosis. No edema. NEUROLOGICAL: Awake and alert. Oriented 3. No obvious cranial nerve deficits. Motor grossly within normal limits. Normal speech. PSYCHIATRIC: Appropriate mood and affect; insight and judgment normal. Data Data Last Documented VS Vital Signs Date Time Temp Pulse Resp B/P (MAP) Pulse Ox O2 Delivery O2 Flow Rate FiO2 09/19/17 18:00 87 15 116/74 (88) 97 Room Air 09/19/17 12:45 98.8 Orders Orders Basic Metabolic Panel (Bmp) (09/19/17 13:48) Complete Blood Count With Diff (2/22/18 13:48) Iv Access Insert/Monitor (09/19/17 13:48) Ondansetron Inj (Zofran Inj) (09/19/17 14:00) Sodium Chlor 0.9% 1000 Ml Inj (Ns 1000 M (09/19/17 13:48) Sodium Chloride 0.9% Flush (Ns Flush) (09/19/17 14:00) Westergren Sedimentation Rate (09/19/17 13:48) C-Reactive Protein (Crp) (09/19/17 13:48) Wound Culture And Gram Stain (09/19/17 13:48) Femur (Ap & Lat/2vws) (09/19/17 13:48) Hydromorphone Pf Inj (Dilaudid Pf Inj) (09/19/17 15:15) Ed Discharge Order (09/19/17 18:42) Labs Laboratory Tests Test 09/19/17 14:50 White Blood Count 6.9 TH/MM3 Red Blood Count 4.32 MIL/MM3 Hemoglobin 13.7 GM/DL Hematocrit 40.5 % Mean Corpuscular Volume 93.7 FL Mean Corpuscular Hemoglobin 31.8 PG Mean Corpuscular Hemoglobin Concent 34.0 % Red Cell Distribution Width 13.9 % Platelet Count 301 TH/MM3 Mean Platelet Volume 7.9 FL Neutrophils (%) (Auto) 61.1 % Lymphocytes (%) (Auto) 30.3 % Monocytes (%) (Auto) 6.5 % Eosinophils (%) (Auto) 1.5 % Basophils (%) (Auto) 0.6 % Neutrophils # (Auto) 4.2 TH/MM3 Lymphocytes # (Auto) 2.1 TH/MM3 Monocytes # (Auto) 0.5 TH/MM3 Eosinophils # (Auto) 0.1 TH/MM3 Basophils # (Auto) 0.0 TH/MM3 CBC Comment DIFF FINAL Differential Comment Erythrocyte Sedimentation Rate 49 mm/hr [facility] Medical Decision Making Medical Screen Exam Complete: Yes Emergency Medical Condition: Yes Medical Record Reviewed: Yes Differential Diagnosis Surgical incision infection, postop infection, postop pain Narrative Course 31-year-old female 2 weeks postop after left hip surgery by Dr. Leigh with pain , redness, drainage coming from her surgical incision. She is afebrile and nontoxic-appearing. Denies fevers. Reports vomiting. Dr. tavarez, my attending physician, evaluated the patient and we agreed on a plan of care. CBC, BMP, CRP , sed rate, normal saline bolus, Dilaudid, left femur x-ray ordered. 1400: Call placed to Dr. Leigh. 1443: Spoke with LAWRENCE Ayon, of Dr Leigh; he reviewed the x-ray and if labs are unremarkable the patient will follow up outpatient and he recommends Bactrim and doxycycline; patient has a scheduled appointment on September 23 and this was verified by Gabo. Left femur x-ray concluded: Femur X-Ray 09/19/17 1348 Signed Impressions: Service Date/Time: , September 19, 2017 14:14 - CONCLUSION: 1. Stable deformity of the femoral head when compared to 09/06/17. 2. No acute findings. Brandon Sears MD 1530: CBC unremarkable. 1840: ESR 49. Patient has follow-up appointment scheduled on September 23. Doxycycline and Bactrim prescribed for home. Instructed patient to follow-up as scheduled appointment. Instructed patient to follow up with primary care provider. Patient verbalizes understanding and agreement with treatment plan. Patient is medically cleared and stable for discharge. Discussed reasons to return to the emergency department. Patient agrees with treatment plan. The patients vital signs are stable and the patient is stable for outpatient follow- up and treatment. Patient discharged home, stable and in no acute distress. Diagnosis Primary Impression: Surgical wound infection Qualified Codes: T81.4XXA - Infection following a procedure, initial encounter Referrals: Power Leigh MD [facility] Primary Care Physician Patient Instructions: General Instructions, Staple Care (ED), Wound Infection ( ED) Additional Instructions: Complete full course of antibiotics Keep area clean and dry Ibuprofen or Tylenol as directed and as needed for pain and inflammation Follow-up with primary care provider Return to emergency department immediately with worsening of symptoms Med/Other Pt SpecificInfo: Prescription(s) given Scripts Ibuprofen (Ibuprofen) 800 Mg Tab 800 MG PO Q6HR Y for PAIN, #30 TAB 0 Refills Prov: Kaylynn Maxwell [employer] ATTENDANT 09/19/17 Sulfamethoxazole-Trimethoprim (Bactrim DS) 800-160 Mg Tab 1 TAB PO BID for Infection for 10 Days, #20 TAB 0 Refills Prov: Kaylynn Maxwell 09/19/17 Doxycycline Hyclate (Doxycycline Hyclate) 100 Mg Cap 100 MG PO BID for Infection for 10 Days, #20 CAP 0 Refills Prov: Kaylynn Maxwell 09/19/17 Disposition: 01 DISCHARGE HOME Condition: Stable Kaylynn Maxwell Sep 19, 2017 14:01
--- NOTE | 2017-09-19 14:36 | RADRPT ---
EXAM DATE/TIME: 09/19/2017 14:14 [facility] COMPARISON: HIP LEFT (AP&LAT 2/3VWS) WO AP PELVIS, December 17, 2016, 8:51. HIP LEFT (AP&LAT 2/3VWS) WO AP PELVIS, bru2017, 8:57. INDICATIONS : Evaluate for infection. Post op two weeks ago. MEDICAL HISTORY : None. SURGICAL HISTORY : Left hip hardware. ENCOUNTER: Initial ACUITY: 1 day PAIN SCORE: 6/10 LOCATION: Left Hip FINDINGS: Femoral neck screws were removed on 09/06/17. There is collapse/flattening of the femoral head with sc lerosis and some widening at the junction of the femoral head and neck. This is similar to the posto perative digital images performed on 09/06/17. The shaft of the femur is intact. Skin mattie are present laterally in the proximal thigh. CONCLUSION: 1. Stable deformity of the femoral head when compared to 09/06/17. 2. No acute findings. Brandon Sears MD on September 19, 2017 at 14:32 Board Certified Radiologist. This report was verified electronically.
--- NOTE | 2017-09-19 14:54 | PD ---
Physical Exam Date Seen by Provider: Sep 19, 2017 Narrative The patient presents with the chief complaint of increased pain and redness at her surgical site. She is status post left hip surgery about 2 weeks ago. Data Data Last Documented VS Vital Signs Date Time Temp Pulse Resp B/P (MAP) Pulse Ox O2 Delivery O2 Flow Rate FiO2 09/19/17 12:45 98.8 104 20 125/75 (92) 100 Orders Orders Basic Metabolic Panel (Bmp) (09/19/17 13:48) Complete Blood Count With Diff (09/19/17 13:48) Iv Access Insert/Monitor (09/19/17 13:48) Ondansetron Inj (Zofran Inj) (09/19/17 14:00) Sodium Chlor 0.9% 1000 Ml Inj (Ns 1000 M (09/19/17 13:48) Sodium Chloride 0.9% Flush (Ns Flush) (09/19/17 14:00) Westergren Sedimentation Rate (09/19/17 13:48) C-Reactive Protein (Crp) (09/19/17 13:48) Wound Culture And Gram Stain (09/19/17 13:48) Hydromorphone Pf Inj (Dilaudid Pf Inj) (09/19/17 14:00) Femur (Ap & Lat/2vws) (09/19/17 13:48) MDM Supervised Visit with ANGIE: Yes Narrative Course I, Dr. Riojas, have reviewed the advance practice practitioner's documentation and am in agreement, met with the patient face to face, made the diagnosis, and the medical decision making was done by me. *My assessment and Findings: [place] are in place in the left lateral upper thigh area. There is some surrounding erythema. There is a scant amount of purulent drainage. Kaylynn has contacted orthopedics for recommendations for treatment. Please see Kaylynn Maxwell NP's note for results of laboratory and radiographic evaluation, ED course, final diagnosis and disposition Scripts No Active Prescriptions or Reported Meds Radha Riojas MD Sep 19, 2017 14:54
[2017-09-19] MEDS ORDERED: HYDROmorphone HCL PF 2 MG/ML VIAL IV PUSH ONE (15:15)
[2017-09-19] MEDS ORDERED: DOXY100C PO (15:17)
[2017-09-19] MEDS ORDERED: IBUP1TAB7 PO (15:17)
[2017-09-19] MEDS ORDERED: BACT800T5 PO (15:17)
[2017-09-19 15:18] LABS: AUTOMATED NEUTROPHIL # 4.2 TH/MM3 (1.8-7.7); BASOPHIL % 0.6 % (0.0-2.0); EOSINOPHIL # 0.1 TH/MM3 (0-0.4); EOSINOPHIL % 1.5 % (0.0-4.0); HEMATOCRIT 40.5 % (35.0-46.0); HEMOGLOBIN 13.7 GM/DL (11.6-15.3); LYMPH % 30.3 % (9.0-44.0); LYMPHOCYTE # 2.1 TH/MM3 (1.0-4.8); MEAN CELL VOLUME 93.7 FL (80.0-100.0); MEAN CORPUSCULAR HEMOGLOBIN 31.8 PG (27.0-34.0); MEAN PLATELET VOLUME 7.9 FL (7.0-11.0); MONO % 6.5 % (0.0-8.0); MONOCYTE # 0.5 TH/MM3 (0-0.9); NEUT % 61.1 % (16.0-70.0); PLATELET COUNT 301 TH/MM3 (150-450); RED BLOOD COUNT 4.32 MIL/MM3 (4.00-5.30); RED CELL DISTRIBUTION WIDTH 13.9 % (11.6-17.2); WHITE BLOOD COUNT 6.9 TH/MM3 (4.0-11.0)
[2017-09-19 18:00] VITALS: BP 116/74; PULSE 87; RESP 15; O2SAT 97
== END 2017-09-19 19:25 | disposition home or self-care (01) ==
LOC: NEPD 12:43
DX: T81.4XXA Infection following a procedure, initial encounter (principal); F17.200 Nicotine dependence, unspecified, uncomplicated
CPT/HCPCS: 73552; 85025; 85652; 86403; 87070; 87077; 87186; 96361; 96374; 96375; 99284; J1170; J2405; J7030; 87205

== ENCOUNTER 2017-11-08 14:00 | Observation (INO) | payer MEDICAID ==
[~2017-11-08] VITALS: Ht 157.5 cm; Wt 50.0 kg
[~2017-11-08 14:00] MED LIST changes: +BACT800T5 PO; +DOXY100C PO; +IBUP1TAB7 PO; -NORC5TAB PO
[2017-11-08 14:06] VITALS: BP 118/72; PULSE 105; RESP 18; TEMP 98.3; O2SAT 100
[2017-11-08] MEDS ORDERED: HYDR-3288 PO (15:18)
[2017-11-08] MEDS ORDERED: HYDROmorphone HCL PF 1 MG/ML VIAL IM ONE (15:30)
[2017-11-08] MEDS ORDERED: HYDROmorphone HCL PF 2 MG/ML VIAL IV PUSH ONE ×2 (15:45→17:00)
[2017-11-08] MEDS ORDERED: HYDROmorphone HCL PF 2 MG/ML VIAL SQ ONE (15:45)
--- NOTE | 2017-11-08 16:22 | RADRPT ---
EXAM DATE/TIME: 11/08/2017 15:59 [facility] COMPARISON: HIP LEFT (AP&LAT 2/3VWS) WO AP PELVIS, September 06, 2017, 8:57. FEMUR LEFT (AP & LAT/2VWS), September 19, 2017, 14:14. INDICATIONS : Fall, left hip pain, previous hip fracture 1 year ago. ORAL CONTRAST: No oral contrast ingested. RADIATION DOSE: 6.16 CTDIvol (mGy) MEDICAL HISTORY : Seizures. Hernia, hiatal. bipolar, schizophrenia. SURGICAL HISTORY : Hysterectomy. Cholecystectomy. ENCOUNTER: Initial ACUITY: 1 day PAIN SCALE: 7/10 LOCATION: Left Hip TECHNIQUE: Volumetric scanning of the pelvis was performed. Using automated exposure control and adjustment of the mA and/or kV according to patient size, radiation dose was kept as low as reasonably achievable t o obtain optimal diagnostic quality images. DICOM format image data is available electronically for review and comparison. FINDINGS: There is evidence for previous nailing of the left hip and fragmentation of the femoral head with bon e articulating with bone. The femur is intact. The SI joints are normal. The pelvis is intact. Th e right hip is normal. CONCLUSION: Previous nailing of the left hip with fragmentation and collapse of the femoral head probably all chronic. I don't see evidence for acute pelvic fracture. John Seay MD FACR on November 08, 2017 at 16:18 Board Certified Radiologist. This report was verified electronically.
--- NOTE | 2017-11-08 16:29 | PD ---
HPI Chief Complaint: Injury Time Seen by Provider: 15:17 Travel History International Travel<30 days: No Contact w/Intl Traveler<30days: No Traveled to known affect area: No History of Present Illness HPI 32-year-old woman presents emerged from complaining of severe left hip pain. She has a history of fall with hip fracture, treated surgically, with complication of avascular necrosis. She had the hardware removed. She is due to have a total hip replacement. She is supposed to stop smoking. She states that she slipped and fell in the tub and now cannot move the left hip without extreme pain, and cannot lay on it without extreme pain. She is otherwise been feeling generally well and healthy. No other complaints. History Past Medical History Tetanus Vaccination: Unknown Menopausal: Yes : 4 Para: 3 Dilation and Curettage (D&C): Yes (x2) Social History Alcohol Use: No Tobacco Use: Yes (/2 PPD) Allergies-Medications (Allergen,Severity, Reaction): Coded Allergies: amoxicillin (Unverified Allergy, Severe, RASH, 11/08/17) codeine (Unverified Allergy, Severe, UNKNOWN, 11/08/17) morphine (Unverified Allergy, Severe, HIVES ITCHING, 11/08/17) penicillin G (Unverified Allergy, Severe, Swelling, 11/08/17) Reported Meds & Prescriptions Reported Meds & Active Scripts Active Reported [place] (Hydrocodone-Acetaminophen) 7.5-325 mg Tab 2 Tab PO Q6H PRN Review of Systems Except as stated in HPI: all other systems reviewed are Neg Physical Exam Narrative GENERAL: Thin 32-year-old woman, laying on her abdomen, refusing to move the left leg. SKIN: Focused skin assessment warm/dry. HEAD: Atraumatic. Normocephalic. NECK: Grossly normal. Moves neck freely. CARDIOVASCULAR: Regular rate and rhythm. No murmur appreciated. RESPIRATORY: No accessory muscle use. Clear to auscultation. Breath sounds equal bilaterally. GASTROINTESTINAL: Abdomen appears flat. Unable to palpate due to patient's refusal to lie on her back. MUSCULOSKELETAL: No obvious deformities. Tenderness to palpation anywhere in the left hip. Refuses to range the hip at all. The lower extremities unremarkable. NEUROLOGICAL: Awake and alert. No obvious cranial nerve deficits. Motor grossly within normal limits. Normal speech. PSYCHIATRIC: Tearful. Data Data Last Documented VS Vital Signs Date Time Temp Pulse Resp B/P (MAP) Pulse Ox O2 Delivery O2 Flow Rate FiO2 11/08/17 15:20 Room Air 11/08/17 14:06 98.3 105 18 118/72 (87) [address] Pelvis W/O Iv Contrast (11/08/17 ) Hydromorphone Pf Inj (Dilaudid Pf Inj) (11/08/17 15:30) Hydromorphone Pf Inj (Dilaudid Pf Inj) (11/08/17 15:45) Hydromorphone Pf Inj (Dilaudid Pf Inj) (11/08/17 15:45) MDM Medical Decision Making Medical Screen Exam Complete: Yes Emergency Medical Condition: Yes Interpretation(s) CT pelvis: Previous nailing of the left hip with fragmentation and collapse of the femoral head, probably all chronic. No definite evidence of acute fracture. Differential Diagnosis Fracture, contusion, other Narrative Course Medical decision making Is a 32-year-old woman who presents to the emergency department complaining of pain in the left hip. She reports pain with any range of motion or with palpation of the hip. CT scan shows a lot of chronic collapse, no definite fracture. Clinically she has a fracture in the hip. Will discuss with orthopedics, likely admission for observation. Diagnosis Primary Impression: Hip fracture, left Car Carroll MD Nov 08, 2017 16:29
[2017-11-08 17:49] LABS: AUTOMATED NEUTROPHIL # 3.9 TH/MM3 (1.8-7.7); BASOPHIL % 0.8 % (0.0-2.0); EOSINOPHIL # 0.1 TH/MM3 (0-0.4); EOSINOPHIL % 1.2 % (0.0-4.0); HEMATOCRIT 37.9 % (35.0-46.0); HEMOGLOBIN 13.3 GM/DL (11.6-15.3); LYMPH % 28.1 % (9.0-44.0); LYMPHOCYTE # 1.7 TH/MM3 (1.0-4.8); MEAN CELL VOLUME 92.6 FL (80.0-100.0); MEAN CORPUSCULAR HEMOGLOBIN 32.4 PG (27.0-34.0); MEAN PLATELET VOLUME 8.1 FL (7.0-11.0); MONO % 6.2 % (0.0-8.0); MONOCYTE # 0.4 TH/MM3 (0-0.9); NEUT % 63.7 % (16.0-70.0); PLATELET COUNT 217 TH/MM3 (150-450); RED BLOOD COUNT 4.09 MIL/MM3 (4.00-5.30); RED CELL DISTRIBUTION WIDTH 13.5 % (11.6-17.2); WHITE BLOOD COUNT 6.1 TH/MM3 (4.0-11.0)
[2017-11-08 17:54] VITALS: BP 112/61; PULSE 75; RESP 16; O2SAT 98
--- NOTE | 2017-11-08 17:58 | HHI.HP ---
[facility] No Primary Care Physician Admission Diagnosis Intractable Left Hip Pain, ?Fracture Diagnoses: (1) Left hip pain Diagnosis: Principal Chief Complaint: pain to the left hip after a fall Travel History International Travel<30 Days: No Contact w/Intl Traveler <30 Da: No Traveled to Known Affected Are: No History of Present Illness patient is a 32 y/o female with history of bipolar disorder who had ORIF left hip last year presented to ER with intractable left hip pain. she says that she fell earlier after which she started to have worsening pain to the left hip. she denies any prodromal symptoms before the fall and there's no report of syncope. she says that the the hardware was removed a month and half ago and due to poor healing of the fracture she's being considered for total hip replacement by . at the time of my evaluation the pain was severe in intensity. she says that she's not able to walk because of the pain. she denies any other complaints. Review of Systems Constitutional: DENIES: Fever, Weight loss, Chills, Night Sweats Eyes: DENIES: Blurred vision, Diplopia, Vision loss, Double Vision Ears, nose, mouth, throat: DENIES: Tinnitus, Vertigo, Throat pain, Epistaxis Respiratory: DENIES: Apneas, Cough, Snoring, Wheezing, Hemoptysis, Sputum production, Shortness of breath Cardiovascular: DENIES: Chest pain, Palpitations, Syncope, Dyspnea on Exertion , PND, Lower Extremity Edema, Orthopnea, Claudication Gastrointestinal: DENIES: Abdominal pain, Black stools, Bloody stools, Constipation, Diarrhea, Nausea, Vomiting, Difficulty Swallowing, Anorexia Genitourinary: DENIES: Urinary frequency, Urgency, Hematuria, Dysuria Musculoskeletal: COMPLAINS OF: Joint pain (left hip.), DENIES: Muscle aches, Stiffness, Joint Swelling Integumentary: DENIES: Rash Neurologic: DENIES: Abnormal gait, Headache, Localized weakness, Paresthesias, Seizures, Speech Problems, Tremor, Poor Balance Psychiatric: DENIES: Anxiety, Confusion, Mood changes, Depression, Hallucinations, Agitation, Suicidal Ideation, Homicidal Ideation, Delusions Past Family Social History Past Medical History bipolar disorder. Past Surgical History left hip ORIF. Reported Medications norco. Allergies: Coded Allergies: amoxicillin (Unverified Allergy, Severe, RASH, 11/08/17) codeine (Unverified Allergy, Severe, UNKNOWN, 11/08/17) morphine (Unverified Allergy, Severe, HIVES ITCHING, 11/08/17) penicillin G (Unverified Allergy, Severe, Swelling, 11/08/17) Active Ordered Medications Inpatient Medications Hydromorphone HCl (Dilaudid Pf Inj) 1 mg Q4H PRN IV PUSH PAIN; Start 11/08/17 at 17:00 Social History smokes a few cigarettes a day. no drinking or illicit drug abuse. Physical Exam Vital Signs Vital Signs Date Time Temp Pulse Resp B/P (MAP) Pulse Ox O2 Delivery O2 Flow Rate FiO2 11/08/17 15:20 Room Air 11/08/17 14:06 98.3 105 18 118/72 (87) 100 Physical Exam GENERAL: This is a well-nourished, well-developed patient, in no apparent distress. SKIN: No rashes, ecchymoses or lesions. Cool and dry. HEAD: Atraumatic. Normocephalic. No temporal or scalp tenderness. EYES: Pupils equal round and reactive. Extraocular motions intact. No scleral icterus. No injection or drainage. ENT: Nose without bleeding, purulent drainage or septal hematoma. Throat without erythema, tonsillar hypertrophy or exudate. Uvula midline. Airway patent. NECK: Trachea midline. No JVD or lymphadenopathy. Supple, nontender, no meningeal signs. CARDIOVASCULAR: Regular rate and rhythm without murmurs, gallops, or rubs. RESPIRATORY: Clear to auscultation. Breath sounds equal bilaterally. No wheezes , rales, or rhonchi. GASTROINTESTINAL: Abdomen soft, non-tender, nondistended. No hepato-splenomegaly , or palpable masses. No guarding. MUSCULOSKELETAL: Extremities without clubbing, cyanosis, or edema. No joint tenderness, effusion, or edema noted. No calf tenderness. Negative Homans sign bilaterally. NEUROLOGICAL: Awake and alert. Cranial nerves II through XII intact. Motor and sensory grossly within normal limits. Five out of 5 muscle strength in all muscle groups. Normal speech. Laboratory Laboratory Tests Test 11/08/17 17:20 White Blood Count 6.1 Red Blood Count 4.09 Hemoglobin 13.3 Hematocrit 37.9 Mean Corpuscular Volume 92.6 Mean Corpuscular Hemoglobin 32.4 Mean Corpuscular Hemoglobin Concent 35.0 Red Cell Distribution Width 13.5 Platelet Count 217 Mean Platelet Volume 8.1 Neutrophils (%) (Auto) 63.7 Lymphocytes (%) (Auto) 28.1 Monocytes (%) (Auto) 6.2 Eosinophils (%) (Auto) 1.2 Basophils (%) (Auto) 0.8 Neutrophils # (Auto) 3.9 Lymphocytes # (Auto) 1.7 Monocytes # (Auto) 0.4 Eosinophils # (Auto) 0.1 Basophils # (Auto) 0.0 CBC Comment DIFF FINAL Differential Comment Imaging Last Impressions Pelvis CT 11/08/17 0000 Signed Impressions: Service Date/Time: Wednesday, November 08, 2017 15:59 - CONCLUSION: Previous nailing of the left hip with fragmentation and collapse of the femoral head probably all chronic. I don't see evidence for acute pelvic fracture. John Seay MD FACR Caprini VTE Risk Assessment Caprini VTE Risk Assessment: Mod/High Risk (score >= 2) Caprini Risk Assessment Model Point Value = 1 Point Value = 2 Point Value = 3 Point Value = 5 Age 41-60 Minor surgery BMI > 25 kg/m2 Swollen legs Varicose veins or History of unexplained or recurrent spontaneous Oral contraceptives or hormone replacement Sepsis (< 1 month) Serious lung disease, including pneumonia (< 1 month) Abnormal pulmonary function Acute myocardial infarction Congestive heart failure (< 1 month) History of inflammatory bowel disease Medical patient at bed rest Age 61-74 Arthroscopic surgery Major open surgery (> 45 min) Laparoscopic surgery (> 45 min) Malignancy Confined to bed (> 72 hours) Immobilizing plaster cast Central venous access Age >= 75 History of VTE Family history of VTE Factor V Leiden Prothrombin [id number] Lupus anticoagulant Anticardiolipin antibodies Elevated serum homocysteine Heparin-induced thrombocytopenia Other congenital or acquired thrombophilia Stroke (< 1 month) Elective arthroplasty Hip, pelvis, or leg fracture Acute spinal cord injury (< 1 month) Prophylaxis Regimen Total Risk Factor Score Risk Level Prophylaxis Regimen 0-1 Low Early ambulation 2 Moderate Order ONE of the following: *Sequential Compression Device (SCD) *Heparin 5000 units SQ BID 3-4 Higher Order ONE of the following medications: *Heparin 5000 units SQ TID *Enoxaparin/Lovenox 40 mg SQ daily (WT < 150 kg, CrCl > 30 mL/min) *Enoxaparin/Lovenox 30 mg SQ daily (WT < 150 kg, CrCl > 10-29 mL/min) *Enoxaparin/Lovenox 30 mg SQ BID (WT < 150 kg, CrCl > 30 mL/min) AND/OR *Sequential Compression Device (SCD) 5 or more Highest Order ONE of the following medications: *Heparin 5000 units SQ TID (Preferred with Epidurals) *Enoxaparin/Lovenox 40 mg SQ daily (WT < 150 kg, CrCl > 30 mL/min) *Enoxaparin/Lovenox 30 mg SQ daily (WT < 150 kg, CrCl > 10-29 mL/min) *Enoxaparin/Lovenox 30 mg SQ BID (WT < 150 kg, CrCl > 30 mL/min) AND *Sequential Compression Device (SCD) Assessment and Plan Assessment and Plan A/P - intractable left hip pain after a fall- s/p ORIF left hip fracture last year continue with pain control- will consult ortho; patient is being considered for left total hip replacement by . -bipolar disorder; f/u a outpatient. Discussed Condition With ER and the patient. Patrica De Jesus MD Nov 08, 2017 17:58
[2017-11-08 18:00] LABS: BICARBONATE 27.6 MEQ/L (21.0-32.0); CREATININE 0.63 MG/DL (0.50-1.00)
[2017-11-08] MEDS ORDERED: ONDANSETRON HCL 4 MG/2 ML VIAL IV PUSH PRN (18:00)
[2017-11-08] MEDS ORDERED: ACETAMINOPHEN/HYDROcodone 325 MG/7.5 MG TAB PO PRN (18:00)
[2017-11-08] MEDS: ACETAMINOPHEN/HYDROcodone 325 MG/7.5 MG TAB PO PRN ×2 (19:08→23:33)
[2017-11-08 19:45] VITALS: BP 124/58; PULSE 70; RESP 18; TEMP 97.4; O2SAT 100
[2017-11-08] MEDS: HYDROmorphone HCL PF 2 MG/ML VIAL IV PUSH PRN (21:30)
[2017-11-08 23:36] VITALS: BP 100/49; PULSE 74; RESP 18; TEMP 96.9; O2SAT 99
[2017-11-09] MEDS: HYDROmorphone HCL PF 2 MG/ML VIAL IV PUSH PRN ×6 (01:23→22:28)
[2017-11-09 03:16] VITALS: BP 102/49; PULSE 64; RESP 17; TEMP 97.2; O2SAT 99
[2017-11-09] MEDS: ACETAMINOPHEN/HYDROcodone 325 MG/7.5 MG TAB PO PRN ×5 (03:47→20:10)
[2017-11-09 06:18] VITALS: BP 94/65; PULSE 79; RESP 17; TEMP 98.2; O2SAT 97
--- NOTE | 2017-11-09 07:34 | PD.CONS ---
HPI Service Orthopedic Surgeons Consult Requested By Reason for Consult Left hip pain Primary Care Physician No Primary Care Physician Admission Diagnosis Intractable Left Hip Pain, ?Fracture Diagnoses: (1) Left hip pain Diagnosis: Principal Chief Complaint: Left hip pain History of Present Illness 32 y/o female with history of bipolar disorder who had ORIF left hip last year presented to ER with intractable left hip pain. Patient has been followed and treated by Dr. Leigh as an outpatient. At her last appointment, she was instructed that she needed to quit smoking for at least [address] Leigh performing a total hip arthroplasty. She says that she fell earlier after which she started to have worsening pain to the left hip. Upon questioning, patient states in general her left hip pain has just slowly been increasing. Review of Systems Constitutional: DENIES: Fever Endocrine: DENIES: Polyuria Eyes: DENIES: Blurred vision Ears, nose, mouth, throat: DENIES: Throat pain Respiratory: DENIES: Cough Cardiovascular: DENIES: Chest pain Gastrointestinal: DENIES: Abdominal pain Genitourinary: DENIES: Urinary incontinence Musculoskeletal: COMPLAINS OF: Joint pain Integumentary: DENIES: Rash Hematologic/lymphatic: DENIES: Bruising Immunologic/allergic: DENIES: Eczema Neurologic: DENIES: Abnormal gait Psychiatric: DENIES: Anxiety Past Family Social History Past Medical History bipolar disorder, AVN of left hip Past Surgical History left hip ORIF and hardware removal in August Reported Medications Please see full documented list Allergies: Coded Allergies: amoxicillin (Unverified Allergy, Severe, RASH, 11/08/17) codeine (Unverified Allergy, Severe, UNKNOWN, 11/08/17) morphine (Unverified Allergy, Severe, HIVES ITCHING, 11/08/17) penicillin G (Unverified Allergy, Severe, Swelling, 11/08/17) Active Ordered Medications Current Medications Medications (Trade) Dose Ordered Sig/Dorothy Route Start Time Stop Time Status Last Admin (Dilaudid Pf Inj) 1 mg Q4H PRN IV PUSH 11/08/17 17:00 11/09/17 05:28 ([place] 7.5-325 Mg) 1 tab Q4H PRN PO 11/08/17 18:00 ([place] 7.5-325 Mg) 2 tab Q4HR PRN PO 11/08/17 18:00 11/09/17 03:47 (Zofran Inj) 4 mg Q8HR PRN IV PUSH 11/08/17 18:00 Reported Meds & Active Scripts Active Reported [place] (Hydrocodone-Acetaminophen) 7.5-325 mg Tab 2 Tab PO Q6H PRN Social History smokes a few cigarettes a day. no drinking or illicit drug abuse. Physical Exam Vital Signs Vital Signs Date Time Temp Pulse Resp B/P (MAP) Pulse Ox O2 Delivery O2 Flow Rate FiO2 11/09/17 03:16 97.2 64 17 102/49 (66) 99 11/08/17 23:36 96.9 74 18 100/49 (66) 99 11/08/17 19:45 97.4 70 18 124/58 (80) 100 11/08/17 18:49 11/08/17 17:54 75 16 112/61 (78) 98 Room Air 11/08/17 15:20 Room Air 11/08/17 14:06 98.3 105 18 118/72 (87) 100 Physical Exam Awake, alert, no acute distress. Patient is lying on her abdomen on exam. Normocephalic Pupils equal No JVD Moist mucous membranes Nonlabored respirations Regular rate Soft nontender abdomen Left lower extremity: Patient will not allow range of motion of her hip due to reported discomfort however patient mobilizing in bed and turned over onto her left hip without any appreciable discomfort. Patient appears neurovascularly intact distally. Brisk cap refill. Bilateral upper extremities and right lower extremity: No significant tenderness palpation or appreciable deformities. Full active range of motion and strength throughout. Sensation intact. Brisk cap refill. No rash Normal affect. Laboratory Laboratory Tests Test 11/08/17 17:20 White Blood Count 6.1 Red Blood Count 4.09 Hemoglobin 13.3 Hematocrit 37.9 Mean Corpuscular Volume 92.6 Mean Corpuscular Hemoglobin 32.4 Mean Corpuscular Hemoglobin Concent 35.0 Red Cell Distribution Width 13.5 Platelet Count 217 Mean Platelet Volume 8.1 Neutrophils (%) (Auto) 63.7 Lymphocytes (%) (Auto) 28.1 Monocytes (%) (Auto) 6.2 Eosinophils (%) (Auto) 1.2 Basophils (%) (Auto) 0.8 Neutrophils # (Auto) 3.9 Lymphocytes # (Auto) 1.7 Monocytes # (Auto) 0.4 Eosinophils # (Auto) 0.1 Basophils # (Auto) 0.0 CBC Comment DIFF FINAL Differential Comment Blood Urea Nitrogen 10 Creatinine 0.63 Random Glucose 98 Calcium Level 9.0 Sodium Level 139 Potassium Level 4.0 Chloride Level 107 Carbon Dioxide Level 27.6 Anion Gap 4 Estimat Glomerular Filtration Rate 108 Result Diagram: 11/08/17 1720 11/08/17 1720 Course Last [address] 11/08/17 0000 Signed Impressions: Service Date/Time: Wednesday, November 08, 2017 15:59 - CONCLUSION: Previous nailing of the left hip with fragmentation and collapse of the femoral head probably all chronic. I don't see evidence for acute pelvic fracture. John Seay MD FACR Assessment & Plan Assessment and Plan 32-year-old female with history of left hip fracture status post ORIF with subsequent AVN and hardware removal. Patient has been followed by Dr. Leigh with plan for a outpatient, elective left total hip arthroplasty once the patient had quit smoking. Patient presents with reported new fall without any clear evidence of acute fracture. Options of management were discussed with the patient. At this time I will touch base with Dr. Leigh to discuss her options. A left total hip arthroplasty would be somewhat complex given her history of fracture with subsequent fixation and hardware removal along with the AVN she has. Certainly, surgery would not be over the weekend and if Dr. Leigh would like to undertake this while she is here this would not be performed until at least Saturday or Saturday. However, I do not believe it is unreasonable given her issues appear very chronic in nature that she could follow up as an outpatient with Dr. Leigh for elective outpatient surgery. Josefina Cordova MD Nov 09, 2017 07:34
[2017-11-09 16:00] VITALS: BP 108/72; PULSE 90; RESP 16; TEMP 97.2; O2SAT 97
--- NOTE | 2017-11-09 16:11 | HHI.PR ---
Subjective Remarks The patient was ambulating with a walker. She said her pain was very severe. She says she now has pain at her lower left back that radiates down her left leg. She says she has not smoked a cigarette in 11 days. She really wants to have surgery this hospitalization. Discussed with nursing. Objective Vitals Vital Signs Date Time Temp Pulse Resp B/P (MAP) Pulse Ox O2 Delivery O2 Flow Rate FiO2 11/09/17 10:45 18 11/09/17 08:58 18 11/09/17 06:18 98.2 79 17 94/65 (75) 97 11/09/17 03:16 97.2 64 17 102/49 (66) 99 11/08/17 23:36 96.9 74 18 100/49 (66) 99 11/08/17 19:45 97.4 70 18 124/58 (80) 100 11/08/17 18:49 11/08/17 17:54 75 16 112/61 (78) 98 Room Air I/O 11/08/17 11/08/17 11/08/17 11/09/17 11/09/17 11/09/17 06:59 14:59 22:59 06:59 14:59 22:59 Intake Total 120 ml Balance 120 ml Intake Oral 120 ml # Voids 1 # Bowel Movements 1 Result Diagram: 11/08/17 1720 11/08/17 1720 Imaging Last Impressions Pelvis CT 11/08/17 0000 Signed Impressions: Service Date/Time: Wednesday, November 08, 2017 15:59 - CONCLUSION: Previous nailing of the left hip with fragmentation and collapse of the femoral head probably all chronic. I don't see evidence for acute pelvic fracture. John Seay MD FACR Objective Remarks GENERAL: Appears uncomfortable. SKIN: No rashes, ecchymoses or lesions. Cool and dry. HEAD: Atraumatic. Normocephalic. No temporal or scalp tenderness. EYES: Pupils equal round and reactive. Extraocular motions intact. No scleral icterus. No injection or drainage. ENT: Nose without bleeding, purulent drainage or septal hematoma. Throat without erythema, tonsillar hypertrophy or exudate. Uvula midline. Airway patent. NECK: Trachea midline. No JVD or lymphadenopathy. Supple, nontender, no meningeal signs. CARDIOVASCULAR: Regular rate and rhythm without murmurs, gallops, or rubs. RESPIRATORY: Clear to auscultation. Breath sounds equal bilaterally. No wheezes , rales, or rhonchi. GASTROINTESTINAL: Abdomen soft, non-tender, nondistended. No hepato-splenomegaly , or palpable masses. No guarding. MUSCULOSKELETAL: Left hip tenderness to palpation. NEUROLOGICAL: Awake and alert. Cranial nerves II through XII intact. Motor and sensory grossly within normal limits. Five out of 5 muscle strength in all muscle groups. Normal speech. Medications and IVs Current Medications Medications (Trade) Dose Ordered Sig/Dorothy Route Start Time Stop Time Status Last Admin (Dilaudid Pf Inj) 1 mg Q4H PRN IV PUSH 11/08/17 17:00 11/09/17 14:32 ([place] 7.5-325 Mg) 1 tab Q4H PRN PO 11/08/17 18:00 ([place] 7.5-325 Mg) 2 tab Q4HR PRN PO 11/08/17 18:00 11/09/17 12:15 (Zofran Inj) 4 mg Q8HR PRN IV PUSH 11/08/17 18:00 A/P Problem List: (1) Left hip pain ICD Code: M25.552 - Pain in left hip Assessment and Plan Intractable left hip pain After a fall- s/p ORIF left hip fracture last year. Orthopedic surgery consult appreciated. - continue with pain control. Add standing IV Toradol. - PT. - follow up with orthopedic surgery. Will likely have surgery as an outpt. Tobacco abuse The pt says she recently stopped smoking. - Smoking cessation reinforced. Hypotension Blood pressure is slightly low. - Continue to monitor. Bipolar disorder Stable at this time. - f/u as outpatient. PPx: SCDs Discharge Planning D/c when pain controlled and if cleared by Erasmo Payne DO Nov 09, 2017 16:11
[2017-11-09] MEDS: KETOROLAC TROMETHAMINE 30 MG/ML (IVP) VIAL IV PUSH SCH (17:09)
[2017-11-09 20:05] VITALS: BP 108/51; PULSE 80; RESP 18; TEMP 97.8; O2SAT 97
[2017-11-09] MEDS: DOCUSATE SODIUM 50 MG/SENNA 8.6 MG TAB PO SCH (20:09)
[2017-11-09 23:30] VITALS: BP 96/51; PULSE 64; RESP 18; TEMP 97.9; O2SAT 99
[2017-11-10] MEDS: ACETAMINOPHEN/HYDROcodone 325 MG/7.5 MG TAB PO PRN ×4 (00:15→12:48)
[2017-11-10] MEDS: KETOROLAC TROMETHAMINE 30 MG/ML (IVP) VIAL IV PUSH SCH ×2 (01:00→08:40)
[2017-11-10] MEDS: HYDROmorphone HCL PF 2 MG/ML VIAL IV PUSH PRN ×2 (02:39→06:45)
--- NOTE | 2017-11-10 07:05 | PD.ORT.PN ---
Subjective Subjective Remarks Patient continues to complain of pain but is standing at bedside leaning over bed fixing sheets. Objective Vitals Vital Signs Date Time Temp Pulse Resp B/P (MAP) Pulse Ox O2 Delivery O2 Flow Rate FiO2 11/09/17 23:30 97.9 64 18 96/51 (66) 99 11/09/17 20:05 97.8 80 18 108/51 (70) 97 11/09/17 18:16 17 11/09/17 17:12 16 11/09/17 16:00 97.2 90 16 108/72 (84) 97 11/09/17 10:45 18 I/O 11/09/17 11/09/17 11/09/17 11/10/17 11/10/17 11/10/17 07:00 15:00 23:00 07:00 15:00 23:00 Intake Total 120 ml Balance 120 ml Intake Oral 120 ml # Voids 1 # Bowel Movements 1 Result Diagram: 11/08/17 1720 11/08/17 1720 Objective Remarks Awake, alert, no acute distress Left lower extremity: Patient will not allow full range of motion of her hip due to reported discomfort however patient standing at bedside without any appreciable discomfort. Patient appears neurovascularly intact distally. Brisk cap refill. Assessment & Plan Assessment and Plan 32-year-old female with history of left hip fracture status post ORIF with subsequent AVN and hardware removal. Patient has been followed by Dr. Leigh with plan for a outpatient, elective left total hip arthroplasty once the patient had quit smoking. I discussed this case with Dr. Leigh who states he has canceled her procedure twice now for active tobacco use. He has been clear that he wants her to quit smoking for at least 1 month prior to scheduling surgery. Patient can follow-up as an outpatient with Dr. Leigh. He can discuss her smoking cessation along with when and if he may schedule an elective total hip arthroplasty. Josefina Cordova MD Nov 10, 2017 07:05
[2017-11-10 08:00] VITALS: BP 91/49; PULSE 78; RESP 19; TEMP 97.5; O2SAT 96
[2017-11-10] MEDS: DOCUSATE SODIUM 50 MG/SENNA 8.6 MG TAB PO SCH (08:40)
[2017-11-10 12:00] VITALS: BP 92/50; PULSE 76; RESP 18; TEMP 98.2; O2SAT 98
[2017-11-10] MEDS ORDERED: HYDR-3580 PO (14:13)
[2017-11-10] MEDS ORDERED: IBUP1TAB7 PO (14:13)
[2017-11-10] MEDS ORDERED: PANT40TA3 PO (14:13)
--- NOTE | 2017-11-10 14:13 | HHI.DCPOC ---
Discharge Care Plan Diagnosis: (1) Hip fracture, left (2) Left hip pain (3) Tobacco abuse Goals to Promote Your Health * To prevent worsening of your condition and complications * To maintain your health at the optimal level Directions to Meet Your Goals Take your medications as prescribed Follow your dietary instruction Follow activity as directed Keep your appointments as scheduled Take your immunizations and boosters as scheduled If your symptoms worsen call your PCP, if no PCP go to Urgent Care Center or Emergency Room Smoking is Dangerous to Your Health. Avoid second hand smoke Call the 24-hour hour crisis hotline for domestic abuse at Erasmo Esteves DO Nov 10, 2017 14:13
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
== END 2017-11-10 17:28 | disposition home or self-care (01) ==
LOC: NEPD 14:00 → NEDA 17:28 → UNDOADMOB 17:28 → NEDA 18:58 → N06A 18:58 → UNDODISOB 11-10 17:28
PROVIDERS: ADMIT Hospitalist; ATTEND Hospitalist
DX: M25.552 Pain in left hip (principal); F17.210 Nicotine dependence, cigarettes, uncomplicated; F31.9 Bipolar disorder, unspecified; Y93.E1 Activity, personal bathing and showering; W18.2XXA Fall in (into) shower or empty bathtub, initial encounter
CPT/HCPCS: 72192; 80048; 85025; 96372; 96374; 96375; 96376; 97161; 99285; G0378; G8987; G8988; G8989; J1170; J1885

== ENCOUNTER 2017-11-25 11:38 | Emergency (ER) | payer MEDICAID ==
[~2017-11-25] VITALS: Ht 157.5 cm; Wt 44.5 kg
[~2017-11-25 11:38] MED LIST changes: -BACT800T5 PO; -DOXY100C PO; +HYDR-3288 PO; +HYDR-3580 PO; +PANT40TA3 PO
[2017-11-25 12:11] VITALS: BP 120/83; PULSE 118; RESP 20; TEMP 98.4; O2SAT 98
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
[2017-11-25] MEDS ORDERED: ORPHENADRINE INJ 60 MG/2 ML AMP IM ONE (15:00)
[2017-11-25] MEDS ORDERED: KETOROLAC TROMETHAMINE 60 MG/2 ML (IM) VIAL IM ONE (15:00)
--- NOTE | 2017-11-25 16:23 | RADRPT ---
EXAM DATE/TIME: 11/25/2017 15:40 [facility] COMPARISON: CT PELVIS W/O CONTRAST, November 08, 2017, 15:59. HIP LEFT (AP&LAT 2/3VWS) W AP PELVIS, December 16, 2016, 1 7:23. INDICATIONS : Pain. Fall. MEDICAL HISTORY : Seizures. Hernia, hiatal. bipolar, schizophrenia. SURGICAL HISTORY : Hysterectomy. Cholecystectomy. ENCOUNTER: Initial ACUITY: 1 day PAIN SCORE: 10/10 LOCATION: Left Hip. FINDINGS: Frontal view of the pelvis and lateral view of the left hip was performed. Deformity of the left pro ximal femur with fragmentation and collapse of the left femoral head and superior dislocation of the femoral neck with chronic sclerosis is similar in appearance to footwear sales associate film from CT pelvis on 11/08/17. Faint lucent nail tracts are seen in the intratrochanteric area. The bony pelvic ring appears imtiaz sly intact. The arcuate lines of the sacrum are symmetric. The right proximal femur is grossly inta ct. CONCLUSION: Stable chronic deformity of the left hip with displaced femoral neck and collapse/fragmentation of th e femoral head. No acute findings. Brandon Sears MD on November 25, 2017 at 16:19 Board Certified Radiologist. This report was verified electronically.
--- NOTE | 2017-11-25 16:37 | RADRPT ---
EXAM DATE/TIME: 11/25/2017 15:55 [facility] COMPARISON: No previous studies available for comparison. INDICATIONS : Left hip and back pain. RADIATION DOSE: 8.36 CTDIvol (mGy) MEDICAL HISTORY : Prior hip fracture SURGICAL HISTORY : Hysterectomy. ENCOUNTER: Initial ACUITY: 2 days PAIN SCALE: 8/10 LOCATION: Left pelvis TECHNIQUE: Volumetric scanning of the lumbar spine was performed. Multiplanar reconstructions in the sagittal, coronal and oblique axial planes were performed. Using automated exposure control and adjustment of the mA and/or kV according to patient size, radiation dose was kept as low as reasonably achievable t o obtain optimal diagnostic quality images. DICOM format image data is available electronically for review and comparison. FINDINGS: There is normal alignment of vertebral bodies of the lumbar spine preservation of vertebral body heig ht. Limbus configuration to the anterior superior angle of L4. The posterior elements are normal in . Pedicles and transverse processes are intact. No fractures are seen. T12-L1: The thecal sac has a normal diameter. No evidence of disc bulge or protrusion. The neural foramina are patent bilaterally. L1-L2: The thecal sac has a normal diameter. No evidence of disc bulge or protrusion. The neural foramina are patent bilaterally. L2-L3: The thecal sac has a normal diameter. No evidence of disc bulge or protrusion. The neural foramina are patent bilaterally. L3-L4: Mild left lateral bulging of the disc into the neural foramen without deformity of the thecal sac. L4-L5: Broad-based bulging of the disc flattens the ventral margin of the thecal sac. L5-S1: The central left-sided bulging of the disc extends into the neural foramen. Possible impression upon the S1 nerve root within the neural foramen. CONCLUSION: 1. No evidence of compression deformity or spondylolisthesis. 2. Disc bulging L3-S1 with possible neural impingement within the neural foramina left sided L5-S1. Brandon Sears MD on November 25, 2017 at 16:23 Board Certified Radiologist. This report was verified electronically.
[2017-11-25] MEDS ORDERED: HYDROmorphone HCL PF 2 MG/ML VIAL IM ONE (16:45)
[2017-11-25] MEDS ORDERED: CYCL5TAB PO (16:47)
[2017-11-25] MEDS ORDERED: IBUP-232 PO (16:47)
[2017-11-25 17:40] VITALS: BP 132/75
== END 2017-11-25 18:16 | disposition home or self-care (01) ==
LOC: NEPD 11:38
DX: M54.16 Radiculopathy, lumbar region (principal); G89.29 Other chronic pain; M25.552 Pain in left hip; M87.9 Osteonecrosis, unspecified; F17.200 Nicotine dependence, unspecified, uncomplicated
CPT/HCPCS: 72131; 73502; 96372; 99283; J1170; J1885; J2360